=== PATIENT | male | born 2000 | race Caucasian/White ===

== ENCOUNTER 2018-09-20 13:10 | Emergency (ER) | payer SELFPAY ==
[~2018-09-20] VITALS: Ht 170.2 cm; Wt 89.4 kg
[~2018-09-20 13:10] MED LIST: IBUP-44 PO
[2018-09-20 13:15] VITALS: BP 118/50
--- NOTE | 2018-09-20 13:18 | NUR ---
PATIENT AMBULATED TO BED 5.
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
--- NOTE | 2018-09-20 13:47 | NUR ---
X-ray of left completed.
[2018-09-20] MEDS ORDERED: KETOROLAC 60 MG/2 ML VIAL IM ONE (14:30)
--- NOTE | 2018-09-20 14:38 | NUR ---
ADMINISTERED PAIN MEDICINE ORDERED.
[2018-09-20 16:05] VITALS: BP 128/62
--- NOTE | 2018-09-20 16:05 | NUR ---
Patient discharged with v/s stable. Written and verbal after care instructions given and explained. Patient alert, oriented and verbalized understanding of instructions. Ambulatory with steady gait. All questions addressed prior to discharge. ID band removed. Patient advised to follow up with PMD. Rx of MOTRIN 800MG, NORCO 5MG-325MG given. Patient educated on indication of medication including possible reaction and side effects. Opportunity to ask questions provided and answered.
== END 2018-09-20 16:05 | disposition home or self-care (01) ==
LOC: MED 13:10
DX: S62.337A Displaced fracture of neck of fifth metacarpal bone, left hand, initial encounter for closed fracture (principal); Z79.899 Other long term (current) drug therapy; V87.8XXA Person injured in other specified noncollision transport accidents involving motor vehicle (traffic), initial encounter; Y93.89 Activity, other specified; Y92.89 Other specified places as the place of occurrence of the external cause; Y99.8 Other external cause status
CPT/HCPCS: 29125; 73130; 96372; 99284; J1885; Q0092

== ENCOUNTER 2019-02-11 03:37 | Emergency (ER) | payer BC, MEDICAID ==
[~2019-02-11] VITALS: Ht 170.2 cm; Wt 99.8 kg
[2019-02-11 03:41] VITALS: BP 136/77
--- NOTE | 2019-02-11 03:41 | NUR ---
TO BED # 12 AMBULATORY, REPORT GIVEN TO JENARO SOUZA
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
[2019-02-11] MEDS ORDERED: IBUPROFEN 600 MG TAB PO ONE (04:20)
--- NOTE | 2019-02-11 05:18 | NUR ---
PT DISCHARGED BY DR BARNES. PT GIVEN RX FOR NAPROSYN, WAS PT EDUCATED ON RX AND DX AND ALL QUESTIONS ANSWERED. PT SHOWED NO SIGNS OF RESPIRATORY DISTRESS, WAS GIVEN IBUPROFIN FOR COTTO AND NADR NOTED. WOUNDS CLEANED ON HANDS. VSS. TOLD TO FOLLOW UP WITH PRIMARY MD.
[2019-02-11 05:29] VITALS: BP 136/77
== END 2019-02-11 05:18 | disposition home or self-care (01) ==
LOC: MED 03:37
DX: S20.212A Contusion of left front wall of thorax, initial encounter (principal); S09.90XA Unspecified injury of head, initial encounter; Z79.1 Long term (current) use of non-steroidal anti-inflammatories (NSAID); W19.XXXA Unspecified fall, initial encounter; Y93.89 Activity, other specified; Y92.89 Other specified places as the place of occurrence of the external cause; Y99.8 Other external cause status
CPT/HCPCS: 70450; 71250; 99284

== ENCOUNTER 2019-04-02 06:00 | Emergency (ER) | payer BC ==
[~2019-04-02] VITALS: Ht 177.8 cm; Wt 98.9 kg
[2019-04-02 06:02] VITALS: BP 124/70
--- NOTE | 2019-04-02 06:02 | NUR ---
TO BED # 04 AMBULATORY
--- NOTE | 2019-04-02 06:08 | NUR ---
Pt ambulated to bed 4
--- NOTE | 2019-04-02 06:09 | NUR ---
18/M presents to ED, c/o 6/10 constant stabbing LUQ pain, x3 hrs. Pt reports diarrhea. Denies fever/chills, n/v, constipation or dysuria. AOx4, ambulatory, RR even and unlabored. BS active x4, abd soft round tender to LUQ, denies lower quadrant tenderness. Denies med hx or rx. OTC ibuprofen 3 hrs ago without relief.
--- NOTE | 2019-04-02 06:15 | NUR ---
Dr. Funes evaluating patient at bedside.
--- NOTE | 2019-04-02 06:24 | NUR ---
XR at bedside
[2019-04-02] MEDS ORDERED: KETOROLAC 30 MG/ML VIAL IM ONE (06:30)
--- NOTE | 2019-04-02 06:47 | NUR ---
Patient discharged with v/s stable. Written and verbal after care instructions given and explained. Patient alert, oriented and verbalized understanding of instructions. Ambulatory with steady gait. All questions addressed prior to discharge. ID band removed. Patient advised to follow up with PMD. Rx of ZOFRAN, IBUPROFEN, IMODIUM given. Patient educated on indication of medication including possible reaction and side effects. Opportunity to ask questions provided and answered.
[2019-04-02 06:50] VITALS: BP 126/76
== END 2019-04-02 06:47 | disposition home or self-care (01) ==
LOC: MED 06:00
DX: T62.91XA Toxic effect of unspecified noxious substance eaten as food, accidental (unintentional), initial encounter (principal); Z79.899 Other long term (current) drug therapy; Y92.89 Other specified places as the place of occurrence of the external cause
CPT/HCPCS: 74018; 96372; 99283; J1885; Q0092

== ENCOUNTER 2019-11-10 19:30 | Emergency (ER) | payer BC ==
[~2019-11-10] VITALS: Ht 172.7 cm; Wt 81.6 kg
[2019-11-10 19:50] VITALS: BP 138/75
--- NOTE | 2019-11-10 19:50 | NUR ---
TO LOBBY A/W BED AMBULATORY
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
--- NOTE | 2019-11-10 21:41 | NUR ---
DR. LEVI PRUETT AT BEDSIDE.
[2019-11-10 23:50] VITALS: BP 132/76
--- NOTE | 2019-11-10 23:50 | NUR ---
Patient discharged with v/s stable. Written and verbal after care instructions given and explained. Patient verbalized understanding. Ambulatory with steady gait. All questions addressed prior to discharge. Advised to follow up with PMD.
== END 2019-11-10 23:50 | disposition home or self-care (01) ==
LOC: MED 19:30
DX: S02.32XA Fracture of orbital floor, left side, initial encounter for closed fracture (principal); Z79.899 Other long term (current) drug therapy; X58.XXXA Exposure to other specified factors, initial encounter; Y93.89 Activity, other specified; Y92.89 Other specified places as the place of occurrence of the external cause; Y99.8 Other external cause status
CPT/HCPCS: 70150; 99283